=== PATIENT | male | born 1970 | race Hispanic/Latino ===

== ENCOUNTER 2020-04-04 13:10 | Inpatient (IN) | payer SELFPAY ==
[~2020-04-04] VITALS: Ht 165.1 cm; Wt 80.3 kg
[~2020-04-04 13:10] MED LIST: INDOMETHACIN25 MG PO; LORTAB 5-325 MG1 TAB PO; MITIGARE0.6 MG PO
--- NOTE | 2020-04-04 14:40 | NUR ---
PT AMB TO ROOM FOR TRIAGE
[2020-04-04 15:26] LABS: HEMATOCRIT 46.5 % (39.0-50.0); HEMOGLOBIN 15.1 g/dl (14.0-18.0); IMMATURE GRANULOCYTES 1.2 % (0.0-5.0); MEAN CELL VOLUME 88.7 fL CALC (80.0-100.0); MEAN CORPUSCULAR HGB 28.8 pG CALC (26.0-32.0); MEAN CORPUSCULAR HGB CONC 32.5 g/dL CAL (32.0-36.0); NEUT# 2.87 thou/uL (1.82-7.42); RED BLOOD COUNT 5.24 mill/uL (4.70-6.10); RED CELL DISTRI WIDTH 11.9 % (11.5-15.5)
--- NOTE | 2020-04-04 15:40 | NUR ---
Patient is resting on the stretcher. No distress noted.
[2020-04-04 15:51] LABS: ALBUMIN 4.4 g/dL (3.2-5.0); ALKALINE PHOSPHATASE 107 u/l (38-126); AMYLASE 75 u/l (30-110); ANION GAP 13 (6-22 (CALC)); BILIRUBIN, TOTAL 1.1 mg/dL (0.0-1.4); BUN 15 mg/dL (9-20); BUN/CREATININE RATIO 23 (12-20 (CALC)); CARBON DIOXIDE 28 mmol/l (22-30); CHLORIDE 100 mmol/l (95-108); CREATININE 0.7 mg/dL (0.7-1.3); GFR > 60 ML/MIN (>=60 (CALC)); GFR FOR AFR.AMER. > 60 ML/MIN (>=60 (CALC)); LIPASE 168 u/l (23-300); POTASSIUM 4.1 mmol/l (3.5-5.1); SGOT/AST 89 u/l (17-59); SODIUM 136 mmol/l (137-146); TOTAL PROTEIN 8.5 g/dL (6.3-8.2)
--- NOTE | 2020-04-04 16:40 | NUR ---
Patient is resting. waiting on CT
[2020-04-04 17:37] LABS: C-REACTIVE PROTEIN 15.9 mg/dL (0-0.9)
--- NOTE | 2020-04-04 17:40 | NUR ---
PATIENT IS RESTING. NO DISTRESS NOTED
--- NOTE | 2020-04-04 18:40 | NUR ---
PATIENT IS AWARE OF TESTING RESULTS. PT HAS NO DISTRESS
--- NOTE | 2020-04-04 19:05 | NUR ---
REPORT GIVEN TO MIESHA JIMENEZ
--- NOTE | 2020-04-04 19:11 | NUR ---
PT RESTING. AWAITING BED TO BE READY. VSS. REPORT ALREADY CALLED
--- NOTE | 2020-04-04 19:52 | NUR ---
PT TO FLOOR VIA STRETCHER. MASKED FOR COVID PROTOCAL. PT AMBULATORY TO BED UPON ARRIVAL TO FLOOR.
--- NOTE | 2020-04-04 20:10 | NUR ---
PT. ARRIVED TO THE FLOOR @1999 BY ER STAFF. PT. ORIENTED TO ROOM, CALL LIGHT, AND POC; VERBALIZES UNDERSTANDING. VSS. PT. IS ON RA. IV SITE PATENT AND SL. ADMISSION ASSESSMENT COMPLETED. NO RESP. DISTRESS NOTED AT THIS TIME. URINAL AT BEDSIDE AND ADVISED HIM OF NEED OF URINE SAMPLE; VERBALIZES UNDERSTANDING. DENIES NEEDS/PAIN AT THIS TIME. ENCOURAGED TO CALL FOR ANY NEEDS. CALL LIGHT IS IN REACH.
[2020-04-04 20:13] VITALS: BP 146/88
[2020-04-04 22:04] LABS: URINE BILIRUBIN - DIPSTICK NEGATIVE (NEGATIVE); URINE BLOOD DIPSTICK NEGATIVE (NEGATIVE); URINE COLOR YELLOW; URINE GLUCOSE - DIPSTICK >=1000 mg/dL (NEGATIVE); URINE KETONE TRACE mg/dL (NEGATIVE); URINE LEUK ESTERASE NEGATIVE (NEGATIVE); URINE NITRITE - DIPSTICK NEGATIVE (Negative); URINE PROTEIN - DIPSTICK NEGATIVE (NEG-TRACE); URINE SPECIFIC GRAVITY 1.015
[2020-04-05] VITALS (7 sets, daily range): BP systolic 144–175; BP diastolic 66–90
--- NOTE | 2020-04-05 00:32 | NUR ---
PT. RESTING IN BED ON LEFT SIDE WITH EYES CLOSED; RESP. EVEN AND UNLABORED. NO DISTRESS NOTED.
--- NOTE | 2020-04-05 04:00 | NUR ---
AM LABS DRAWN AT THIS TIME. VSS. SPO2 WNL. PT. DENIES NEEDS. CALL LIGHT IS IN REACH.
[2020-04-05 05:05] LABS: IMMATURE GRANULOCYTES 0.6 % (0.0-5.0); MEAN CELL VOLUME 90.5 fL CALC (80.0-100.0); MEAN CORPUSCULAR HGB 29.2 pG CALC (26.0-32.0); MEAN CORPUSCULAR HGB CONC 32.3 g/dL CAL (32.0-36.0); NEUT# 2.12 thou/uL (1.82-7.42); RED BLOOD COUNT 4.42 mill/uL (4.70-6.10); RED CELL DISTRI WIDTH 11.9 % (11.5-15.5)
[2020-04-05 05:39] LABS: ANION GAP 8 (6-22 (CALC)); BUN 15 mg/dL (9-20); BUN/CREATININE RATIO 24 (12-20 (CALC)); CARBON DIOXIDE 27 mmol/l (22-30); CHLORIDE 106 mmol/l (95-108); CREATININE 0.7 mg/dL (0.7-1.3); GFR > 60 ML/MIN (>=60 (CALC)); GFR FOR AFR.AMER. > 60 ML/MIN (>=60 (CALC)); HEMOGLOBIN 12.9 g/dl (14.0-18.0); POTASSIUM 3.9 mmol/l (3.5-5.1); SODIUM 138 mmol/l (137-146)
[2020-04-05 05:43] LABS: C-REACTIVE PROTEIN > 9.0 mg/dL (0-0.9)
--- NOTE | 2020-04-05 09:00 | NUR ---
PT SEEN AWAKE, ALERT, AMBULATORY IN ROOM WITHOUT DIFFICULTY. LUNGS CLEAR, RA. AFEBRILE. NO EVIDENCE OF DISTRESS NOTED.
--- NOTE | 2020-04-05 14:24 | NUR ---
PT WITHOUT CHANGE IN STATUS, SEEN RESTING IN THE BED IN NO ACUTE DISTRESS.
--- NOTE | 2020-04-05 17:22 | NUR ---
PT CONTINUES BEFORE, NO DISTRESS, NO COMPLAINTS. PT PROVIDED ROBITUSSIN FOR COUGH RELIEF.
--- NOTE | 2020-04-05 19:58 | NUR ---
ASSESSMENT COMPLETED. NO DISTRESS NOTED; UPDATED ON POC. PT. REMAINS ON RA. REPORTS NON-PRODUCTIVE COUGH. VSS. ENCOURAGED TO CALL FOR ANY NEEDS.
--- NOTE | 2020-04-06 | NUR ---
RESTING IN BED WITH NO DISTRESS. DENIES NEEDS. ENCOURAGED TO CALL FOR ANY NEEDS.
--- NOTE | 2020-04-06 02:05 | NUR ---
PT. C/O COUGH AND MEDICATED WITH ORDERED PRN ROBITUSSIN AND HUNG A NEW BAG OF ORDERED IVF. URINAL EMPTIED. CALL LIGHT IS IN REACH.
[2020-04-06 03:20] VITALS: BP 157/96
--- NOTE | 2020-04-06 04:40 | NUR ---
AM LABS DRAWN. DENIES NEED/PAIN. CALL LIGHT IS IN REACH.
[2020-04-06 05:25] LABS: HEMATOCRIT 41.4 % (39.0-50.0); HEMOGLOBIN 13.8 g/dl (14.0-18.0); IMMATURE GRANULOCYTES 0.8 % (0.0-5.0); MEAN CELL VOLUME 87.5 fL CALC (80.0-100.0); MEAN CORPUSCULAR HGB 29.2 pG CALC (26.0-32.0); MEAN CORPUSCULAR HGB CONC 33.3 g/dL CAL (32.0-36.0); NEUT# 2.71 thou/uL (1.82-7.42); RED BLOOD COUNT 4.73 mill/uL (4.70-6.10); RED CELL DISTRI WIDTH 11.7 % (11.5-15.5)
[2020-04-06 05:53] LABS: ALBUMIN 3.7 g/dL (3.2-5.0); ALKALINE PHOSPHATASE 88 u/l (38-126); BUN 15 mg/dL (9-20); BUN/CREATININE RATIO 29 (12-20 (CALC)); CHLORIDE 108 mmol/l (95-108); CREATININE 0.5 mg/dL (0.7-1.3); GFR > 60 ML/MIN (>=60 (CALC)); GFR FOR AFR.AMER. > 60 ML/MIN (>=60 (CALC)); POTASSIUM 4.3 mmol/l (3.5-5.1); SGOT/AST 46 u/l (17-59); SODIUM 138 mmol/l (137-146); TOTAL PROTEIN 7.3 g/dL (6.3-8.2)
[2020-04-06 05:55] LABS: ANION GAP 13 (6-22 (CALC)); BILIRUBIN, TOTAL 0.6 mg/dL (0.0-1.4); CARBON DIOXIDE 21 mmol/l (22-30)
[2020-04-06 06:06] LABS: C-REACTIVE PROTEIN 13.7 mg/dL (0-0.9)
[2020-04-06 08:05] VITALS: BP 107/61
--- NOTE | 2020-04-06 09:17 | NUR ---
REPORT TAKEN FROM RENUKA. PT ON ROOM AIR, O2 STAT AT 93%. PT V/S ASSESSED, PT ALERT AND ORIENTED; PT DENIES ANY NEEDS AT THIS TIME. PT IS EATING BREAKFAST,PT POC CARE DISCUSSED. NO DISTRESS NOTED.
[2020-04-06 10:50] VITALS: BP 140/78
[2020-04-06 15:05] VITALS: BP 151/88
--- NOTE | 2020-04-06 16:31 | NUR ---
PT IN BED WATCHING TV. ROBITUSSIN PROVIDE FOR COUGH. NO DISTRESS NOTED. ENCOURAGED TO CALL FOR ANY NEEDS. CALL LIGHT WITHIN REACH.
--- NOTE | 2020-04-06 16:57 | NUR ---
PT SEEN ALERT AND ORIENTED. DENIES PAIN FOR COUGH. IV SIGHT APPEARS HEALTHY AND FLUSHES. TELE ON. AMBULATORY IN ROOM WITHOUT DIFICULTY. NO EVIDENCE OF DISTRESS NOTED.
--- NOTE | 2020-04-06 18:05 | NUR ---
PT RESTING COMFORTABLY IN BED. NO APPARENT DISTRESS. IV ZITHROMAX RUNNING. IV SITE APPEARS HEALTHY. CALL PATE WITHIN REACH.
--- NOTE | 2020-04-06 19:15 | NUR ---
REPORT FROM DANITZA WHITESIDE. PT NOTED RESTING IN BED. NO APPARENT DISTRESS NOTED. PT ALERT AND ORIENTED. DENIES ANY PAIN OR SOB. AFEBRILE. REMAINS ON RA. ASSEMBLY INSPECTOR HELPER IN PLACE. DISCUSSED POC. PT VERBALIZED UNDERSTANDING. CALL LIGHT WITHIN REACH. WILL CONTINUE TO MONITOR.
[2020-04-06 20:10] VITALS: BP 143/93
--- NOTE | 2020-04-06 21:16 | NUR ---
PT MEDICATED ORDERED. PRN COUGH MEDICINE ADMINISTERED UPON REQUEST. DIABETIC SNACK PROVIDED. PT DENIES ANY OTHER WANTS OR NEEDS. IV FLUIDS INFUSING WITHOUT DIFFICULTY. CALL LIGHT WITHIN REACH. WILL CONTINUE TO MONITOR.
[2020-04-06 23:10] VITALS: BP 138/92
--- NOTE | 2020-04-07 01:25 | NUR ---
PT RESTING IN BED WITH EYES CLOSED. NO APPARENT DISTRESS NOTED. RESPIRATIONS EVEN AND UNLABORED. CALL LIGHT WITHIN REACH. WILL CONTINUE TO MONITOR.
[2020-04-07 03:45] VITALS: BP 147/97
--- NOTE | 2020-04-07 04:26 | NUR ---
LABS OBTAINED. PT TOLERATED WELL. DENIES ANY PAIN OR DISCOMFORT. NO CURRENT WANTS OR NEEDS. CALL LIGHT WITHIN REACH. WILL CONTINUE TO MONITOR.
[2020-04-07 05:08] LABS: HEMATOCRIT 43.4 % (39.0-50.0); HEMOGLOBIN 14.4 g/dl (14.0-18.0); MEAN CELL VOLUME 87.5 fL CALC (80.0-100.0); MEAN CORPUSCULAR HGB CONC 33.2 g/dL CAL (32.0-36.0); NEUT# 3.74 thou/uL (1.82-7.42); RED BLOOD COUNT 4.96 mill/uL (4.70-6.10); RED CELL DISTRI WIDTH 11.8 % (11.5-15.5)
[2020-04-07 05:49] LABS: ALBUMIN 3.7 g/dL (3.2-5.0); ALKALINE PHOSPHATASE 96 u/l (38-126); ANION GAP 11 (6-22 (CALC)); BILIRUBIN, TOTAL 0.5 mg/dL (0.0-1.4); BUN 17 mg/dL (9-20); BUN/CREATININE RATIO 28 (12-20 (CALC)); C-REACTIVE PROTEIN 4.9 mg/dL (0-0.9); CARBON DIOXIDE 25 mmol/l (22-30); CHLORIDE 105 mmol/l (95-108); CREATININE 0.6 mg/dL (0.7-1.3); GFR > 60 ML/MIN (>=60 (CALC)); GFR FOR AFR.AMER. > 60 ML/MIN (>=60 (CALC)); POTASSIUM 4.1 mmol/l (3.5-5.1); SODIUM 137 mmol/l (137-146); TOTAL PROTEIN 6.6 g/dL (6.3-8.2)
[2020-04-07 05:50] LABS: SGOT/AST 154 u/l (17-59)
--- NOTE | 2020-04-07 07:00 | NUR ---
REPORT RECEIVED FROM VANESSA MCKEON. PT RESTING IN BED SEMI FOWLERS; ALERT AND ORIENTED. DENIES PAIN. RESPIRATIONS EVEN AND UNLABORED ON ROOM AIR. TELE ON. IV SITE APPEARS HEALTHY AND FLUSHES. SAFETY MEASURES IN PLACE. CALL LIGHT WITHIN REACH.
[2020-04-07 08:00] VITALS: BP 140/89
[2020-04-07 11:00] VITALS: BP 154/72
[2020-04-07] MEDS ORDERED: GLIPIZIDE5 M2 PO (11:33)
[2020-04-07] MEDS ORDERED: METFORMIN500 M2 PO (11:33)
[2020-04-07] MEDS ORDERED: LISINOPRIL10 MG PO (11:33)
[2020-04-07] MEDS ORDERED: ZITHROMAX250 MG PO (11:33)
--- NOTE | 2020-04-07 12:01 | NUR ---
SHOWER TAKEN AND LINENS CHANGED. ROBITUSSIN GIVEN FOR DRY COUGH. 10 UNITS OF NOVOLOG GIVEN FOR ACCU CHECK OF 324.
--- NOTE | 2020-04-07 13:25 | NUR ---
IV site discontinued, cath intact. No edema , no redness, voices no discomfort.
--- NOTE | 2020-04-07 13:33 | NUR ---
Discharge instructions given. Patient verbalizes understanding of same. Discharged in stable condition via Wheelchair to Home with family. All belongings sent with pt.
--- NOTE | 2020-04-21 09:57 | NUR ---
PATIENT INFORMED OF POSITIVE COVID RESULTS. PATIENT INFORMED OF FOLLOW UP CARE AND SELF ISOLATION WITH SYMPTOMS
== END 2020-04-07 13:33 | disposition home or self-care (01) | DRG 177 ==
LOC: ED 13:10 → ED-I 18:00 → ED 18:13 → ED-I 18:14 → MS2 18:52
PROVIDERS: Nurse Practitioner Family; ADMIT Internal Medicine; ATTEND Internal Medicine
PROC: 3E0234Z Introduction of Serum, Toxoid and Vaccine into Muscle, Percutaneous Approach (ICD-10-PCS; principal; 2020-04-05)
DX: U07.1 COVID-19 (principal); J12.89 Other viral pneumonia; E11.8 Type 2 diabetes mellitus with unspecified complications; I10 Essential (primary) hypertension; Z23 Encounter for immunization
CPT/HCPCS: J1650; Q9967